=== PATIENT | male | born 1970 | race Caucasian/White ===

== ENCOUNTER 2018-02-20 05:11 | Emergency (ER) | payer SELFPAY ==
[~2018-02-20] VITALS: Ht 167.6 cm; Wt 77.1 kg
--- NOTE | 2018-02-20 05:42 | PHYS DOC ---
Past Medical History Past Medical History: Alcoholism Past Surgical History: Appendectomy Adult General Chief Complaint Chief Complaint: SUICDAL IDEATION HPI HPI Patient is a 47-year-old who presents to the emergency department for evaluation of multiple complaints. He admits to drinking a pint of alcohol today and states he is feeling depressed, because he is lonely. He states he [place]. He also complains of upper abdominal discomfort radiating up into his chest. He has not had any vomiting. He admits to having some "dark" black/green stools. He has not had any fevers or chills. There are no alleviating or exacerbating factors to his symptoms. Review of Systems Review of Systems Constitutional: Denies fever or chills [] Eyes: Denies change in visual acuity, redness, or eye pain [] HENT: Denies nasal congestion or sore throat [] Respiratory: Denies cough or shortness of breath [] Cardiovascular: No additional information not addressed in HPI [] GI: Denies nausea, vomiting, grossly bloody stools or diarrhea [] : Denies dysuria or hematuria [] Musculoskeletal: Denies back pain or joint pain [] Integument: Denies rash or skin lesions [] Neurologic: Denies headache, focal weakness or sensory changes [] Endocrine: Denies polyuria or polydipsia [] Psychiatric: Reports suicidal ideation. All other systems were reviewed and found to be within normal limits, except as documented in this note. Current Medications Current Medications Current Medications Medications (Trade) Dose Ordered Sig/Christiano Start Time Stop Time Status Last Admin Dose Admin Famotidine (Pepcid Vial) 20 mg 1X ONCE 02/20/18 05:45 02/20/18 05:46 DC Info (CONTRAST GIVEN -- Rx MONITORING) 1 each PRN DAILY PRN 02/20/18 06:15 02/22/18 06:14 Iohexol (Omnipaque 300 Mg/ml) 75 ml 1X ONCE 02/20/18 06:15 02/20/18 06:16 DC Lorazepam (Ativan) 1 mg 1X ONCE 02/20/18 08:00 02/20/18 08:01 DC 02/20/18 08:09 1 MG Multi-Ingredient Mouthwash/Gargle (Gi Cocktail) 20 ml ONCE ONCE 9/6/18 07:30 02/20/18 07:31 DC 02/20/18 07:47 20 ML Ondansetron HCl (Zofran Odt) 8 mg 1X ONCE 02/20/18 07:30 02/20/18 07:31 DC 02/20/18 07:46 8 MG Sodium Chloride 1,000 ml @ 1,000 mls/hr Q1H 02/20/18 05:45 02/20/18 06:44 DC Allergies Allergies Allergies Coded Allergies Type Severity Reaction Last Updated Verified Penicillins Allergy Unknown "I DONT KNOW SINCE I WAS A CHILD" 02/20/18 Yes codeine Allergy Unknown N/V 02/20/18 Yes Physical Exam Physical Exam PHYSICAL EXAM: CONSTITUTIONAL: Well developed, well nourished HEAD: normocephalic, atraumatic EENT: PERRL, EOMI. There is nystagmus bilaterally. Conjunctivae are injected bilaterally, sclerae non-icteric; moist mucous membranes. NECK: Supple, non-tender; no meningismus. LUNGS: Lungs CTA, breathing even and unlabored. Normal air movement. HEART: Regular rate and rhythm, no murmur CHEST: No deformity; non-tender ABDOMEN: The abdomen is soft, it is mild diffuse tenderness to palpation of the abdomen, most prominent in the epigastric area, with some rebound tenderness, but no guarding. The lower abdomen is relatively nontender. There is an appendectomy scar present. Bowel sounds are present. no masses or bruits. EXTREM: Normal ROM; no deformity, no calf tenderness. Normal pulses palpable in all extremities. There is no pedal edema. SKIN: No rash; no diaphoresis NEURO: Alert; normal speech and cognition; CN's grossly intact; strength grossly intact without focal deficit. BACK: No CVA TTP. Current Patient Data Vital Signs Vital Signs Date Time Temp Pulse Resp B/P (MAP) Pulse Ox O2 Delivery O2 Flow Rate FiO2 02/20/18 10:30 87 16 159/100 (119) 96 Room Air 02/20/18 05:11 98.7 98.7 Lab Values Laboratory Tests Test 02/20/18 05:30 02/20/18 06:35 02/20/18 07:00 Stool Occult Blood Negative (NEG) White Blood Count 11.9 x10^3/uL (4.0-11.0) H Red Blood Count 5.16 x10^6/uL (4.30-5.70) Hemoglobin 15.9 g/dL (13.0-17.5) Hematocrit 45.5 % (39.0-53.0) Mean Corpuscular Volume 88 fL (79-100) Mean Corpuscular Hemoglobin 31 pg (25-35) Mean Corpuscular Hemoglobin Concent 35 g/dL (31-37) Red Cell Distribution Width 15.9 % (11.5-14.5) H Platelet Count 338 x10^3/uL (140-400) Neutrophils (%) (Auto) 76 % (31-73) H Lymphocytes (%) (Auto) 18 % (24-48) L Monocytes (%) (Auto) 5 % (0-9) Eosinophils (%) (Auto) 0 % (0-3) Basophils (%) (Auto) 0 % (0-3) Neutrophils # (Auto) 9.1 x10^3uL (1.8-7.7) H Lymphocytes # (Auto) 2.2 x10^3/uL (1.0-4.8) Monocytes # (Auto) 0.6 x10^3/uL (0.0-1.1) Eosinophils # (Auto) 0.0 x10^3/uL (0.0-0.7) Basophils # (Auto) 0.0 x10^3/uL (0.0-0.2) Prothrombin Time 12.7 SEC (11.7-14.0) Prothrombin Time INR 1.0 (0.8-1.1) PTT 28 SEC (24-38) Sodium Level 135 mmol/L (136-145) L Potassium Level 4.0 mmol/L (3.5-5.1) Chloride Level 101 mmol/L (98-107) Carbon Dioxide Level 22 mmol/L (21-32) Anion Gap 12 (6-14) Blood Urea Nitrogen 12 mg/dL (8-26) Creatinine 0.7 mg/dL (0.7-1.3) Estimated GFR (Cockcroft-Gault) 120.9 BUN/Creatinine Ratio 17 (6-20) Glucose Level 111 mg/dL (70-99) H Calcium Level 9.6 mg/dL (8.5-10.1) Total Bilirubin 0.3 mg/dL (0.2-1.0) Aspartate Amino Transferase (AST) 21 U/L (15-37) Alanine Aminotransferase (ALT) 29 U/L (16-63) Alkaline Phosphatase 91 U/L (46-116) Creatine Kinase 76 U/L (39-308) Creatine Kinase MB (Mass) 0.9 ng/mL (0.0-3.6) Creatine Kinase MB Relative Index 1.2 % (0-4) Troponin I Quantitative < 0.017 ng/mL (0.000-0.055) Total Protein 8.1 g/dL (6.4-8.2) Albumin 4.1 g/dL (3.4-5.0) Albumin/Globulin Ratio 1.0 (1.0-1.7) Lipase 65 U/L (73-393) L Salicylates Level 4.9 mg/dL (2.8-20.0) Salicylate Last Dose Date Unknown Salicylate Last Dose Time Unknown Acetaminophen Level < 2 mcg/ml (10-30) L Acetaminophen Last Dose Date Unknown Acetaminophen Last Dose Time Unknown Ethyl Alcohol Level < 10 mg/dL (0-10) Urine Collection Type Unknown Urine Color Yellow Urine Clarity Cloudy Urine pH 6.0 Urine Specific [place] 1.025 Urine Protein 30 mg/dL (NEG-TRACE) Urine Glucose (UA) Negative mg/dL (NEG) Urine Ketones (Stick) 15 mg/dL (NEG) Urine Blood Negative (NEG) Urine Nitrite Negative (NEG) Urine Bilirubin Negative (NEG) Urine Urobilinogen Dipstick 0.2 mg/dL (0.2 mg/dL) Urine Leukocyte Esterase Negative (NEG) Urine RBC 0 /HPF (0-2) Urine WBC 1-4 /HPF (0-4) Urine Squamous Epithelial Cells Occ /LPF Urine Bacteria Few /HPF (0-FEW) Urine Hyaline Casts Few /HPF Urine Mucus Mod /LPF Urine Opiates Screen Neg (NEG) Urine Methadone Screen Neg (NEG) Urine Barbiturates Neg (NEG) Urine Phencyclidine Screen Neg (NEG) Urine Amphetamine/Methamphetamine Neg (NEG) Urine Benzodiazepines Screen Neg (NEG) Urine Cocaine Screen Neg (NEG) Urine Cannabinoids Screen Neg (NEG) Urine Ethyl Alcohol Pos (NEG) Laboratory Tests 02/20/18 06:35 Laboratory Tests 02/20/18 06:35 EKG EKG [Normal sinus rhythm at a rate of 107 beats for minute, leftward axis, normal intervals, incomplete right bundle-branch block, there are no acute ischemic ST/ T changes. Nonspecific changes are present.] Radiology/Procedures Radiology/Procedures [] Course & Med Decision Making Course & Med Decision Making 6:00 AM: Patient care was turned over to Dr. Parks at shift change, pending lab and imaging results, and disposition. Report given. Pertinent Labs and Imaging studies reviewed. (See chart for details) []0630: CAN from Dr. Quintanilla. At time of my evaluation patient somewhat agitated and yelling at staff. Patient demanding water. Patient is alert and oriented 3 but still has some slightly slurred speech indicating likely acute intoxication. Patient reports daily EtOH intake for the last 30 years and typically drinks approximately a fifth of vodka a day. Patient also with moderate epigastric tenderness. Long discussion with patient regarding importance of keeping him NPO pending completion of ER evaluation. There has been some difficulty obtaining IV access. Patient has not been given medications or fluids yet. Another RN is trying for line and we'll give patient medications when able. I do not suspect patient is actively withdrawing right now. Patient does report history of alcohol withdrawal including seizures in the past. 1051: Patient continued to be adamant that he must have something DE drink. Patient reporting that he doll pain when he is "hungry". Unable to obtain IV access. Patient given oral ODT Zofran and velvet glove which she tolerated very well and reported resolution of his pain. Patient allowed to drink and eat which he also tolerated. Alcohol level less than 10. Patient given some Ativan for tachycardia and elevated blood pressure concerning for possible alcohol withdrawal at this time. Patient continued to report as [facility] was involved who placed patient in [facility]. Patient medically cleared for detox and inpatient psychiatric care. [facility] requested Rx for hypertensive medication as patient has been persistently hypertensive. Patient reports history of hypertension but has not been on medication secondary to homeless status. She given Rx for Norvasc 5 mg. She is continued report resolution of pain. ER return precautions given. Patient verbalizes understanding. All questions answered. Patient being transferred to [facility] at this time. Dragon Disclaimer Dragon Disclaimer This electronic medical record was generated, in whole or in part, using a voice recognition dictation system. Departure Departure Disposition: 05 TRANSFER OTHER Condition: STABLE Patient Instructions: Arterial Hypertension Additional Instructions: Please establish care with a primary care physician after your discharge from [facility] for continued management of your hypertension. Scripts Amlodipine Besylate (NORVASC) 5 Mg Tablet 1 TAB PO DAILY, #30 TAB 5 Refills Prov: GUIDO PARKS DO 02/20/18 SEFERINO QUINTANILLA MD Feb 20, 2018 05:42 GUIDO PARKS DO Feb 20, 2018 06:49
[2018-02-20] MEDS ORDERED: IV NORMAL SALINE 1000ML BAG 1,000 ML IV SCH (05:45)
[2018-02-20] MEDS ORDERED: FAMOTIDINE 20 MG/2 ML VIAL IVP ONE (05:45)
[2018-02-20 06:01] LABS: FECAL OB PT NEGATIVE (NEG)
[2018-02-20] MEDS ORDERED: IOHEXOL 300 MG/ML 100ML VIAL. IV ONE (06:15)
[2018-02-20] MEDS ORDERED: CONTRAST GIVEN. MC PRN (06:15)
[2018-02-20 06:57] LABS: BASO % 0 % (0-3); EOS % 0 % (0-3); HEMATOCRIT 45.5 % (39.0-53.0); HEMOGLOBIN 15.9 g/dL (13.0-17.5); LYMPH # 2.2 x10^3/uL (1.0-4.8); LYMPH % 18 % (24-48); MEAN CORPUSCULAR HEMOGLOBIN 31 pg (25-35); MEAN CORPUSCULAR HGB CONC 35 g/dL (31-37); MEAN CORPUSCULAR VOLUME 88 fL (79-100); MONO # 0.6 x10^3/uL (0.0-1.1); MONO % 5 % (0-9); NEUT # 9.1 x10^3uL (1.8-7.7); NEUT % 76 % (31-73); PLATELET COUNT 338 x10^3/uL (140-400); RED BLOOD COUNT 5.16 x10^6/uL (4.30-5.70); RED CELL DISTRIBUTION WIDTH 15.9 % (11.5-14.5); WHITE BLOOD COUNT 11.9 x10^3/uL (4.0-11.0)
[2018-02-20 07:00] LABS: CALCIUM 9.6 mg/dL (8.5-10.1); CREATININE 0.7 mg/dL (0.7-1.3); GFR 120.9
[2018-02-20 07:05] LABS: PROTHROMBIN TIME PATIENT 12.7 SEC (11.7-14.0)
[2018-02-20 07:06] LABS: ALBUMIN 4.1 g/dL (3.4-5.0); TOTAL BILIRUBIN 0.3 mg/dL (0.2-1.0); TOTAL PROTEIN 8.1 g/dL (6.4-8.2)
[2018-02-20 07:16] LABS: AMPHETAMINE/METHAMPHETAMINE NEG (NEG); BARBITURATES NEG (NEG); BENZODIAZEPINES NEG (NEG); CANNABINOIDS NEG (NEG); COCAINE NEG (NEG); METHADONE NEG (NEG); OPIATES NEG (NEG); PHENCYCLIDINE NEG (NEG)
[2018-02-20 07:27] LABS: BILIRUBIN,URINE NEGATIVE (NEG); CLARITY,URINE CLOUDY; COLOR,URINE YELLOW; NITRITE,URINE NEGATIVE (NEG); PROTEIN,URINE 30 mg/dL (NEG-TRACE); UROBILINOGEN,URINE 0.2 mg/dL (0.2 mg/dL)
[2018-02-20] MEDS ORDERED: ONDANSETRON ODT 4 MG TAB.RAPDIS. PO ONE (07:30)
[2018-02-20] MEDS ORDERED: LIDO:MAALOX 1:1 20 ML SINGLE DOSE. PO ONE (07:30)
--- NOTE | 2018-02-20 07:30 | EKG ---
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
[2018-02-20 07:40] LABS: ACETAMIN < 2 mcg/ml (10-30); ETHANOL < 10 mg/dL (0-10); SALIC 4.9 mg/dL (2.8-20.0)
[2018-02-20 07:50] LABS: HYALINE CASTS, URINE FEW /HPF; SQUAMOUS EPITHELIAL CELL,UR OCC /LPF
[2018-02-20 07:52] LABS: BACTERIA,URINE FEW /HPF (0-FEW); RBC,URINE 0 /HPF (0-2)
--- NOTE | 2018-02-20 07:52 | RAD ---
Portable chest, 02/20/2018: History: Chest pain The heart size and pulmonary vascularity are normal. No pulmonary infiltrate is seen. There is no evidence of pleural fluid. Old rib fractures are present in the lower left. IMPRESSION: No acute cardiopulmonary abnormality is detected.
[2018-02-20] MEDS ORDERED: LORazepam 1 MG TABLET PO ONE (08:00)
[2018-02-20 10:30] VITALS: BP 159/100
[2018-02-20] MEDS ORDERED: AMLO5TAB4 PO (10:49)
== END 2018-02-20 10:58 | disposition short-term general hospital (02) ==
LOC: ER 05:11
DX: R45.851 Suicidal ideations (principal); I10 Essential (primary) hypertension; F10.20 Alcohol dependence, uncomplicated; Y90.0 Blood alcohol level of less than 20 mg/100 ml; Z59.0 Homelessness; Z90.89 Acquired absence of other organs; Z88.5 Allergy status to narcotic agent; Z88.0 Allergy status to penicillin; R10.13 Epigastric pain; R47.81 Slurred speech; R00.0 Tachycardia, unspecified
CPT/HCPCS: 36415; 71045; 80053; 80307; 80329; 81001; 82274; 82553; 83690; 84484; 85025; 85610; 85730; 93005; 99285; G0480; G6039; Q0162; G0479